=== PATIENT | female | born 1930 | race Caucasian/White ===

== ENCOUNTER 2016-12-06 21:43 | Outpatient (CLI) | payer MEDICARE, OTHER | END 2016-12-06 21:44 | disposition EMS.NT | LOC: EMS 21:43 | PROVIDERS: ATTEND Surgery | DX: M25.511 Pain in right shoulder (principal); W01.0XXA Fall on same level from slipping, tripping and stumbling without subsequent striking against object, initial encounter; Y92.030 Kitchen in apartment as the place of occurrence of the external cause ==